=== PATIENT | male | born 1955 | race Caucasian/White ===

== ENCOUNTER 2016-06-26 14:48 | Emergency (ER) | payer BC ==
[2016-06-26 15:03] VITALS: RESP 16
--- NOTE | 2016-06-26 15:42 | EDPHY ---
H & P Stated Complaint: LAC LEFT CHO --CUT ON METAL SEPTIC LID HPI/ROS: CHIEF COMPLAINT: Fall, left leg pain HISTORY OF PRESENT ILLNESS: workup with septic outside when he slipped and fell into it. He felt a sudden onset of pain in the right buttock and left cho. Sustained a laceration to the anterior left cho. Bleeding was mild and contained hemostasis but there is a several cm laceration. minimal pain when ambulatory which resolves at rest. His concern is primarily the laceration of the left cho. His tetanus was last updated last year. Has no complaints distal to the wound. No concern over the right hip pain he had. No back pain or injury. No other associated complaints or modifying factors. REVIEW OF SYSTEMS: Ten systems reviewed and are negative unless otherwise noted in the HPI EXAMINATION General Appearance: Alert, no distress Head: normocephalic, atraumatic Eyes: Pupils equal and round, no conjunctival pallor or injection Neck: Normal inspection Respiratory: No dyspnea or retractions. No distress Cardiovascular: Pulses normal throughout 2+ DP and PT symmetric. Brisk cap refill Gastrointestinal: No distention Neurological: A&O, sensory symmetric, strength symmetric Skin: Warm and dry. 4 cm laceration to the left anterior cho, mid shaft. Mild laceration of the lateral wound margin.There is no foreign body noted. Neurovascular intact distally. Extremities: Mild tenderness of the left anterior cho near the region of the laceration. Range of motion is fully intact. No complaint distally. Neurovascular intact distally Psychiatric: Mood and affect normal DIFFERENTIAL DIAGNOSES: Including but not limited to laceration, contusion, fracture MDM: fall with laceration to the left cho. X-ray of the tib-fib is negative. The wound was anesthetized and cleaned extensively. No foreign body in the wound. No evidence of injury to the periosteum.Wound was then closed with wound care discussed in detail. Return in 7-10 days for suture removal. Prophylaxis of Keflex will be provided. Patient and spouse are comfortable with this plan. PROCEDURE: laceration repair Consent: verbal Location: left anterior cho, mid shaft Length of repair: 4.5 cm Complexity: moderate Layer involvement: single Anesthesia: 7 mL of 1% lidocaine with epinephrine Irrigation: extensive Debridement: minimal Procedure description: after good anesthesia, the wound margins were excised with minimal excisional debridement. There is no foreign body. No evidence of injury to the periosteum. Wound was closed with 6 horizontal mattress sutures with good approximation of the wound margins. Suture/Staple material: 4-0 Ethilon Wound care: routine as discussed Suture/Staple removal: 7-10 days ED Precautions: Worsening pain. Erythema, edema, cyanosis, pallor, paresthesia or anesthesia. SUPERVISION: This patient was independently evaluated without the aide of supervising physician. Source: Patient, Family Exam Limitations: No limitations - Personal History Current Tetanus/Diphtheria Vaccine: Unsure Current Tetanus Diphtheria and Acellular Pertussis (TDAP): Yes Tetanus Vaccine Date: 2015 - Medical/Surgical History Hx Asthma: No Hx Chronic Respiratory Disease: No Hx Diabetes: No Hx Cardiac Disease: No Hx Renal Disease: No Hx Cirrhosis: No Hx Alcoholism: Yes Hx HIV/AIDS: No Hx Splenectomy or Spleen Trauma: No Other PMH: History of alcoholism but sober for 15 years., acid reflux, enlarged prostate, L knee surgery, hernia repair - Social History Smoking Status: Never smoked Constitutional: Initial Vital Signs Temperature (C) 97.5 F 06/26/16 15:01 Heart Rate 64 06/26/16 15:01 Respiratory Rate 16 06/26/16 15:01 Blood Pressure 126/71 H 06/26/16 15:01 O2 Sat (%) 96 06/26/16 15:01 O2 Delivery Mode Room Air Allergies/Adverse Reactions: sulfamethoxazole [From Bactrim] Allergy (Verified 06/26/16 15:00) trimethoprim [From Bactrim] Allergy (Verified 06/26/16 15:00) Home Medications: Medication Instructions Recorded Tamsulosin HCl 02/03/16 Cephalexin [Keflex (*)] 500 mg PO TID #30 cap 06/26/16 Departure - Departure Disposition: Home, Routine, Self-Care Clinical Impression: Leg laceration Qualifiers: Encounter type: initial encounter Laterality: left Qualifier Code: (S81.812A) Laceration without foreign body, left lower leg, initial encounter Fall Qualifiers: Encounter type: initial encounter Qualifier Code: (W19.XXXA) Unspecified fall, initial encounter Condition: Good Instructions: Care For Your Stitches (ED), Laceration (ED) Additional Instructions: Follow-up with primary care physician if available. if not return here in 7- 10 days for suture removal. Return sooner for signs or symptoms of infection as discussed. Referrals: NONE *PRIMARY CARE P,. [Primary Care Provider] - As per Instructions Checo Cline MD [Medical Doctor] - As per Instructions Prescriptions: Cephalexin [Keflex (*)] 500 mg PO TID #30 cap
--- NOTE | 2016-06-26 15:54 | DX ---
Left lower leg 2 views HISTORY: Laceration. FINDINGS: No fracture, dislocation, or radiopaque foreign body. Arterial calcifications overlie the t alus, dorsally. IMPRESSION: Negative.
[2016-06-26 16:57] VITALS: BP 124/70; PULSE 68; O2SAT 97
[2016-06-26 16:58] VITALS: TEMP 97.2
== END 2016-06-26 16:57 | disposition home or self-care (01) ==
PROC: 0HQLXZZ Repair Left Lower Leg Skin, External Approach (ICD-10-PCS; principal; 2016-06-26)
DX: S81.812A Laceration without foreign body, left lower leg, initial encounter (principal); W01.0XXA Fall on same level from slipping, tripping and stumbling without subsequent striking against object, initial encounter

== ENCOUNTER 2016-07-07 10:35 | Emergency (ER) | payer BC ==
[2016-07-07 10:46] VITALS: BP 138/83; PULSE 67; RESP 18; TEMP 98.1; O2SAT 95
--- NOTE | 2016-07-07 10:52 | EDPHY ---
H & P Stated Complaint: recheck wound l leg HPI/ROS: Chief complaint: Wound recheck of left leg History of present illness: This is a 60-year-old male who presents to the emergency department for a wound recheck of his left leg. He is concerned he has an infection. Patient fell and cut his leg approximately 11 days ago on an oil drum. He was seen in the emergency department, the wound was cleaned and sutured shut. He was placed on Keflex. He has been taking it as prescribed. However he has persistent redness around the wound site. He states it is uncomfortable. He denies other associated signs or symptoms including no fevers , no discharge from the wound, no red streaking up the leg, no abnormal coolness or paresthesias in the leg. - Personal History Current Tetanus/Diphtheria Vaccine: Yes Tetanus Vaccine Date: 2015 - Medical/Surgical History Hx Asthma: No Hx Chronic Respiratory Disease: No Hx Diabetes: No Hx Cardiac Disease: No Hx Renal Disease: No Hx Cirrhosis: No Hx Alcoholism: Yes Hx HIV/AIDS: No Hx Splenectomy or Spleen Trauma: No Other PMH: History of alcoholism but sober for 15 years., acid reflux, enlarged prostate, L knee surgery, hernia repair - Social History Smoking Status: Never smoked - Physical Exam Exam: General: Alert, nontoxic Skin: Laceration to left anterior cho is noted. It is healing. There is no pustular discharge. There is surrounding erythema. It is tender to palpation. There is no induration or fluctuance to suggest abscess. No red streaking. Musculoskeletal: Patient is moving his left lower extremity without difficulty. Vascular: DP and PT pulses 2+. Neurological: Sensation intact throughout the left leg. Constitutional: Initial Vital Signs Temperature (C) 36.7 C 07/07/16 10:43 Heart Rate 67 07/07/16 10:43 Respiratory Rate 18 07/07/16 10:43 Blood Pressure 138/83 H 07/07/16 10:43 O2 Sat (%) 95 07/07/16 10:43 O2 Delivery Mode Room Air Allergies/Adverse Reactions: sulfamethoxazole [From Bactrim] Allergy (Verified 07/07/16 10:43) trimethoprim [From Bactrim] Allergy (Verified 07/07/16 10:43) Home Medications: Medication Instructions Recorded Tamsulosin HCl 02/03/16 Cephalexin [Keflex (*)] 500 mg PO TID #30 cap 06/26/16 Doxycycline Hyclate [Vibramycin 100 mg PO BID 7 Days 07/07/16 100 MG (*)] Medical Decision Making ED Course/Re-evaluation: Patient discussed with my secondary supervising physician Dr. Juliano Mcknight. Patient presents to the emergency department for a wound recheck. His leg is neurovascularly intact. I am concerned that there is a persistent wound infection. He has been on Keflex. I will switch him to doxycycline for MRSA coverage. Sutures have been removed. Home care is discussed. He is asked to follow up with a primary care doctor or ID doctor for recheck. Strict return precautions are given. Patient voiced understanding and agreement with plan. Differential Diagnosis: Included but not limited to wound infection, cellulitis, abscess, unlikely necrotizing fasciitis or DVT - Data Points Medications Given: Discontinued Medications Doxycycline Hyclate (Doxycycline Hyclate) 100 mg PO EDNOW ONE PRN Reason: Protocol Stop: 07/07/16 10:58 Last Admin: 07/07/16 11:05 Dose: 100 mg Departure - Departure Disposition: Home, Routine, Self-Care Clinical Impression: Cellulitis Condition: Good Instructions: Cellulitis (ED) Additional Instructions: Follow-up with a primary care doctor or infectious disease this week Apply warm compresses to the area multiple times daily Keep wound clean with soap and water If symptoms worsen or new symptoms develop return to the emergency department for recheck Referrals: NONE *PRIMARY CARE P,. [Primary Care Provider] - As per Instructions Agustin Marmolejo MD [Medical Doctor] - As per Instructions Mitzi Rushing MD [Medical Doctor] - As per Instructions Prescriptions: Doxycycline Hyclate [Vibramycin 100 MG (*)] 100 mg PO BID 7 Days
[2016-07-07] MEDS ORDERED: DOXYCYCLINE HYCLATE 100 MG CAP/TAB PO ONE (10:57)
== END 2016-07-07 11:12 | disposition home or self-care (01) ==
DX: L03.116 Cellulitis of left lower limb (principal)